=== PATIENT | male | born 1955 | race Caucasian/White ===

== ENCOUNTER 2017-01-27 05:00 | Inpatient (IN) | payer MEDICAID, MEDICARE ==
[~2017-01-27] VITALS: Ht 180.3 cm; Wt 110.3 kg
[~2017-01-27 05:00] MED LIST: METOPROLOL TARTRATE 25 MG TABLET PO ONE
[2017-01-27] MEDS ORDERED: CHLORHEXIDINE MOUTHWASH 15 ML UDC MM SCH (06:00)
[2017-01-27] MEDS: MUPIROCIN OINT 2%, 22GM TP SCH ×2 (09:00→22:05)
[2017-01-27] MEDS: SODIUM CHLORIDE FLUSH 10ML SYR IVF SCH ×3 (09:00→22:05)
[2017-01-27] MEDS ORDERED: FENTANYL PF 1000 MCG/20ML ONE (11:52)
[2017-01-27] MEDS ORDERED: KETAMINE 10 MG/ML, 20ML ONE (11:52)
[2017-01-27] MEDS ORDERED: MIDAZOLAM 10MG/2 ML ONE (11:52)
[2017-01-27] MEDS ORDERED: ROCURONIUM 10 MG/ML ONE (11:55)
[2017-01-27] MEDS ORDERED: PROPOFOL 10 MG/ML, 20ML ONE (11:55)
[2017-01-27] MEDS ORDERED: PROTAMINE SULFATE 10 MG/ML, 25ML ONE (15:41)
[2017-01-27] MEDS ORDERED: SODIUM BICARBONATE 1 MEQ/ML, 50ML VIAL ONE (15:41)
[2017-01-27] MEDS ORDERED: HEPARIN 1,000 UNITS/ML, 30ML ONE (15:41)
[2017-01-27] MEDS ORDERED: ALBUMIN HUMAN 25% 50 ML ONE (15:41)
[2017-01-27] MEDS ORDERED: AMINOCAPROIC ACID 250 MG/ML, 20ML ONE (15:41)
[2017-01-27] MEDS ORDERED: CALCIUM CHLORIDE 10%, 10ML SYR ONE (15:41)
[2017-01-27] MEDS ORDERED: LIDOCAINE 2% 100MG/5ML SYRINGE ONE (15:42)
[2017-01-27] MEDS ORDERED: HEPARIN 1,000 UNITS/ML, 10ML ONE (15:42)
[2017-01-27] MEDS ORDERED: PAPAVERINE 30 MG/ML, 2ML ONE (15:42)
[2017-01-27] MEDS ORDERED: DO NOT GIVE XX SCH (16:00)
[2017-01-27] MEDS ORDERED: DO NOT GIVE MC SCH (16:00)
[2017-01-27] MEDS ORDERED: ACETAMINOPHEN 325 MG TABLET PO PRN ×2 (16:00→17:00)
[2017-01-27] MEDS ORDERED: MORPHINE SULFATE 4 MG/ML, 1ML ONE (16:08)
[2017-01-27] MEDS: morphine SULFATE 10 MG/ML, 1ML IV PRN ×2 (16:15→19:22)
[2017-01-27] MEDS ORDERED: MIDAZOLAM 1 MG/ML, 2ML ONE (16:24)
[2017-01-27 16:32] LABS: ABG COLLECTION SITE ARTERIAL LINE
[2017-01-27] MEDS ORDERED: DEXTROSE 4 GM TAB.CHEW PO PRN (17:00)
[2017-01-27] MEDS ORDERED: PHENYLEPHRINE 10 MG in SODIUM CHLORIDE 0.9% 249 ML IV PRN (17:00)
[2017-01-27] MEDS ORDERED: MIDAZOLAM 1 MG/ML, 2ML IV PRN (17:00)
[2017-01-27] MEDS ORDERED: GLUCAGON 1 MG IVPush PRN (17:00)
[2017-01-27] MEDS ORDERED: SODIUM CHLORIDE 0.9% 1,000ML IVBOLUS PRN (17:00)
[2017-01-27] MEDS ORDERED: NITROGLYCERIN/D5W PMX 250 ML IV PRN (17:00)
[2017-01-27] MEDS ORDERED: SODIUM CHLORIDE 0.9% 1,000 ML IV SCH (17:00)
[2017-01-27] MEDS: KSCALE TO 4.5 IV SCH ×2 (17:00→23:00)
[2017-01-27] MEDS ORDERED: DOBUTAMINE 250 MG in SODIUM CHLORIDE 0.9% 230 ML IV PRN (17:00)
[2017-01-27] MEDS ORDERED: ONDANSETRON 2MG/ML, 2ML IVPush PRN (17:00)
[2017-01-27] MEDS ORDERED: BISACODYL 10 MG SUPP PR PRN (17:00)
[2017-01-27] MEDS ORDERED: REGULAR INSULIN 62.5 UNITS in SODIUM CHLORIDE 0.9% 249.375 ML IV PRN (17:00)
[2017-01-27] MEDS ORDERED: ACETAMINOPHEN 650 MG SUPP PR PRN (17:00)
[2017-01-27] MEDS ORDERED: MEPERIDINE/PF 25MG/0.5ML IV PRN (17:00)
[2017-01-27] MEDS ORDERED: OXYcodone/APAP 5/325MG TABLET PO PRN (17:00)
[2017-01-27] MEDS ORDERED: HYDROmorphone PCA 30 MG/30 ML IV PRN (17:00)
[2017-01-27] MEDS ORDERED: BISACODYL 5 MG EC TABLET PO PRN (17:00)
[2017-01-27] MEDS ORDERED: DEXMEDETOMIDINE 200 MCG in SODIUM CHLORIDE 0.9% 48 ML IV PRN (17:00)
[2017-01-27] MEDS ORDERED: PROCHLORPERAZINE 5 MG/ML, 2ML IV PRN (17:00)
[2017-01-27] MEDS ORDERED: PHARMACY INSTRUCTION (CSU AMIODARONE) MC SCH (17:00)
[2017-01-27] MEDS ORDERED: DEXTROSE 50%, 50ML SYRINGE IVPush PRN (17:00)
[2017-01-27] MEDS ORDERED: EPINEPHRINE 2 MG in SODIUM CHLORIDE 0.9% 248 ML IVPB PRN (17:00)
[2017-01-27] MEDS ORDERED: SODIUM CHLORIDE 0.9%, 500ML IVBOLUS PRN (17:00)
[2017-01-27] MEDS ORDERED: SODIUM BICARB 8.4%, 50ML SYRINGE IVPush PRN (17:00)
[2017-01-27] MEDS: PANTOPRAZOLE 40 MG IV IVPush SCH (17:44)
[2017-01-27] MEDS: OXYcodone IR 5MG TABLET PO PRN (20:29)
[2017-01-27] MEDS: INSULIN ASPART 100 UNITS/ML, PEN SQ-INSULIN SCH ×2 (22:05→22:33)
[2017-01-27] MEDS: MUPIROCIN OINT 2%, 22GM NAS SCH (22:05)
[2017-01-27] MEDS: DOCUSATE 100 MG CAPSULE PO SCH (22:07)
[2017-01-27] MEDS: CEFUROXIME 1.5 GM in SODIUM CHLORIDE 0.9% 50 ML IVPB SCH (22:25)
[2017-01-27] MEDS: VANCOMYCIN 1,400 MG in SODIUM CHLORIDE 0.9% 250 ML IV SCH (22:59)
[2017-01-27] MEDS: HYDROcodone/APAP 10/325 MG TABLET PO PRN (23:08)
[2017-01-27] MEDS: MAGNESIUM SULFATE 1 GM in SODIUM CHLORIDE 0.9% 50 ML IV SCH (23:08)
[2017-01-28] MEDS: HYDROcodone/APAP 10/325 MG TABLET PO PRN ×5 (02:40→21:32)
[2017-01-28] MEDS: INSULIN ASPART 100 UNITS/ML, PEN SQ-INSULIN SCH ×4 (02:41→21:28)
[2017-01-28 04:37] LABS: ABG COLLECTION SITE ARTERIAL LINE
[2017-01-28 04:46] LABS: BLOOD UREA NITROGEN 27 mg/dL (7-18)
[2017-01-28 04:49] LABS: ASPARTATE AMINO TRANSFERASE 32 U/L (15-37)
[2017-01-28] MEDS: KSCALE TO 4.5 IV SCH (05:00)
[2017-01-28] MEDS ORDERED: CEFUROXIME 1.5 GM in SODIUM CHLORIDE 0.9% 50 ML IVPB PRN (07:30)
[2017-01-28] MEDS ORDERED: CALCIUM CHLORIDE 13.6 MEQ in SODIUM CHLORIDE 0.9% 100 ML IV ONE (07:30)
[2017-01-28] MEDS ORDERED: VANCOMYCIN 1,000 MG in SODIUM CHLORIDE 0.9% 250 ML IV PRN (07:30)
[2017-01-28] MEDS: CEFUROXIME 1.5 GM in SODIUM CHLORIDE 0.9% 50 ML IVPB SCH (07:56)
[2017-01-28] MEDS: MUPIROCIN OINT 2%, 22GM NAS SCH ×2 (08:04→21:29)
[2017-01-28] MEDS: CHLORHEXIDINE PO SCH ×2 (08:04→21:29)
[2017-01-28] MEDS: METOPROLOL TARTRATE 25 MG TABLET PO/NG SCH ×2 (08:04→21:30)
[2017-01-28] MEDS: ASPIRIN 81 MG TABLET EC PO SCH (08:04)
[2017-01-28] MEDS: DOCUSATE 100 MG CAPSULE PO SCH ×2 (08:05→21:32)
[2017-01-28] MEDS: SODIUM CHLORIDE FLUSH 10ML SYR IVF SCH ×4 (08:05→21:29)
[2017-01-28] MEDS: VANCOMYCIN 1,400 MG in SODIUM CHLORIDE 0.9% 250 ML IV SCH (08:55)
[2017-01-28] MEDS: INSULIN ASPART 100 UNITS/ML, PEN SQ-INSULIN PRN ×2 (13:36→16:55)
[2017-01-28] MEDS: PANTOPRAZOLE 40 MG IV IVPush SCH (16:54)
[2017-01-28] MEDS: MAGNESIUM SULFATE 1 GM in SODIUM CHLORIDE 0.9% 50 ML IV SCH (16:54)
[2017-01-29] MEDS: HYDROcodone/APAP 10/325 MG TABLET PO PRN (04:38)
[2017-01-29 06:12] LABS: BLOOD UREA NITROGEN 23 mg/dL (7-18)
[2017-01-29] MEDS: INSULIN ASPART 100 UNITS/ML, PEN SQ-INSULIN SCH ×3 (06:25→16:43)
[2017-01-29] MEDS: DOCUSATE 100 MG CAPSULE PO SCH ×2 (07:37→21:46)
[2017-01-29] MEDS: MUPIROCIN OINT 2%, 22GM NAS SCH ×2 (07:37→21:45)
[2017-01-29] MEDS: ASPIRIN 81 MG TABLET EC PO SCH (07:37)
[2017-01-29] MEDS: CHLORHEXIDINE PO SCH ×2 (07:38→21:45)
[2017-01-29] MEDS: METOPROLOL TARTRATE 25 MG TABLET PO/NG SCH ×2 (07:38→21:46)
[2017-01-29] MEDS: SODIUM CHLORIDE FLUSH 10ML SYR IVF SCH ×4 (07:42→21:45)
[2017-01-29 09:59] LABS: ASPARTATE AMINO TRANSFERASE 20 U/L (15-37); BLOOD UREA NITROGEN 26 mg/dL (7-18)
[2017-01-29 10:00] LABS: ASPARTATE AMINO TRANSFERASE 16 U/L (15-37); BLOOD UREA NITROGEN 27 mg/dL (7-18)
[2017-01-29] MEDS: AMPICILLIN 500 MG in SODIUM CHLORIDE 0.9% 50 ML IV SCH ×3 (10:04→21:44)
[2017-01-29] MEDS: PANTOPRAZOLE 40 MG IV IVPush SCH (17:14)
[2017-01-29] MEDS: MAGNESIUM SULFATE 1 GM in SODIUM CHLORIDE 0.9% 50 ML IV SCH (17:14)
[2017-01-29 18:33] VITALS: BP 115/72
[2017-01-29] MEDS: ENOXAPARIN 40 MG/0.4 ML SQ SCH (21:46)
[2017-01-30 00:48] VITALS: BP 106/67
[2017-01-30] MEDS: AMPICILLIN 500 MG in SODIUM CHLORIDE 0.9% 50 ML IV SCH ×4 (03:46→21:21)
[2017-01-30 04:25] LABS: BLOOD UREA NITROGEN 21 mg/dL (7-18)
[2017-01-30] MEDS: AMIODARONE 900 MG in DEXTROSE 5% 482 ML IV PRN ×2 (05:28→14:41)
[2017-01-30] MEDS ORDERED: AMIODARONE 150 MG in DEXTROSE 5% 100 ML IV ONE (05:30)
[2017-01-30] MEDS ORDERED: FILTER 0.22 MICRON IV PRN (05:30)
[2017-01-30 07:13] VITALS: BP 101/66
[2017-01-30] MEDS ORDERED: POTASSIUM CHLORIDE 20 MEQ TAB.ER.PRT ONE (07:53)
[2017-01-30] MEDS ORDERED: FUROSEMIDE 20 MG/2 ML ONE (07:54)
[2017-01-30] MEDS: POTASSIUM CHLORIDE 10 MEQ TABLET.ER PO SCH (08:00)
[2017-01-30] MEDS: SODIUM CHLORIDE FLUSH 10ML SYR IVF SCH ×4 (08:23→21:21)
[2017-01-30] MEDS: DOCUSATE 100 MG CAPSULE PO SCH ×2 (08:24→21:00)
[2017-01-30] MEDS: MUPIROCIN OINT 2%, 22GM NAS SCH ×2 (08:24→21:20)
[2017-01-30] MEDS: CLOPIDOGREL 75 MG TABLET PO SCH (08:24)
[2017-01-30] MEDS: METOPROLOL TARTRATE 25 MG TABLET PO/NG SCH ×2 (08:24→21:20)
[2017-01-30] MEDS: ASPIRIN 81 MG TABLET EC PO SCH (08:24)
[2017-01-30] MEDS ORDERED: FUROSEMIDE 20 MG/2 ML IV SCH (09:00)
[2017-01-30 13:28] VITALS: BP 106/72
[2017-01-30] MEDS: PANTOPRAZOLE 40 MG IV IVPush SCH (15:49)
[2017-01-30] MEDS ORDERED: SODIUM BICARBONATE 4.2%, 5ML ONE (16:04)
[2017-01-30] MEDS ORDERED: LIDOCAINE 1%, 20ML ONE (16:04)
[2017-01-30 19:51] VITALS: BP 120/63
[2017-01-30] MEDS: ENOXAPARIN 40 MG/0.4 ML SQ SCH (21:19)
[2017-01-30] MEDS: HYDROcodone/APAP 10/325 MG TABLET PO PRN (23:53)
[2017-01-31] VITALS (9 sets, daily range): BP systolic 75–119; BP diastolic 55–83
[2017-01-31] MEDS: AMPICILLIN 500 MG in SODIUM CHLORIDE 0.9% 50 ML IV SCH ×4 (03:59→20:54)
[2017-01-31 04:43] LABS: BLOOD UREA NITROGEN 23 mg/dL (7-18)
[2017-01-31] MEDS: HYDROcodone/APAP 10/325 MG TABLET PO PRN (06:13)
[2017-01-31] MEDS ORDERED: CARVEDILOL 12.5 MG TABLET PO SCH ×2 (08:00→13:00)
[2017-01-31] MEDS: POTASSIUM CHLORIDE 10 MEQ TABLET.ER PO SCH (08:00)
[2017-01-31] MEDS ORDERED: AMIODARONE 900 MG in DEXTROSE 5% 482 ML IV PRN (08:00)
[2017-01-31] MEDS: INSULIN ASPART 100 UNITS/ML, PEN SQ-INSULIN PRN ×4 (08:30→20:54)
[2017-01-31] MEDS: POTASSIUM CHLORIDE 20 MEQ TAB.ER.PRT PO SCH ×2 (08:58→20:33)
[2017-01-31] MEDS: FUROSEMIDE 20 MG/2 ML IV SCH ×2 (08:58→15:37)
[2017-01-31] MEDS: SODIUM CHLORIDE FLUSH 10ML SYR IVF SCH ×3 (08:59→20:34)
[2017-01-31] MEDS: ASPIRIN 81 MG TABLET EC PO SCH (08:59)
[2017-01-31] MEDS: METOPROLOL TARTRATE 25 MG TABLET PO/NG SCH (08:59)
[2017-01-31] MEDS: MUPIROCIN OINT 2%, 22GM NAS SCH ×2 (08:59→20:34)
[2017-01-31] MEDS: CLOPIDOGREL 75 MG TABLET PO SCH (08:59)
[2017-01-31] MEDS ORDERED: AMIODARONE 200 MG TABLET PO SCH (09:00)
[2017-01-31] MEDS ORDERED: DOCUSATE 100 MG CAPSULE PO SCH (09:00)
[2017-01-31] MEDS: LISINOPRIL 5 MG TABLET PO SCH (10:35)
[2017-01-31] MEDS: CARVEDILOL 12.5 MG TABLET PO SCH ×2 (12:34→20:33)
[2017-01-31] MEDS ORDERED: SODIUM CHLORIDE 0.9%, 500ML IVBOLUS ONE (15:30)
[2017-01-31] MEDS: PANTOPRAZOLE 40 MG IV IVPush SCH (17:01)
[2017-01-31] MEDS: ATORVASTATIN 80 MG TABLET PO SCH (20:33)
[2017-01-31] MEDS: ENOXAPARIN 40 MG/0.4 ML SQ SCH (20:33)
[2017-01-31] MEDS: AMIODARONE 200 MG TABLET PO SCH (20:34)
[2017-02-01] VITALS (7 sets, daily range): BP systolic 86–111; BP diastolic 48–71
[2017-02-01] MEDS: AMPICILLIN 500 MG in SODIUM CHLORIDE 0.9% 50 ML IV SCH ×4 (04:33→22:14)
[2017-02-01] MEDS ORDERED: AMIODARONE 900 MG in DEXTROSE 5% 482 ML IV PRN (05:00)
[2017-02-01 05:09] LABS: BLOOD UREA NITROGEN 30 mg/dL (7-18)
[2017-02-01] MEDS: INSULIN ASPART 100 UNITS/ML, PEN SQ-INSULIN PRN ×2 (07:00→13:14)
[2017-02-01] MEDS: CLOPIDOGREL 75 MG TABLET PO SCH (08:53)
[2017-02-01] MEDS: MUPIROCIN OINT 2%, 22GM NAS SCH (08:54)
[2017-02-01] MEDS: DOCUSATE 100 MG CAPSULE PO SCH (08:54)
[2017-02-01] MEDS: SODIUM CHLORIDE FLUSH 10ML SYR IVF SCH ×2 (08:54→20:32)
[2017-02-01] MEDS: ASPIRIN 81 MG TABLET EC PO SCH (08:54)
[2017-02-01] MEDS: AMIODARONE 200 MG TABLET PO SCH ×2 (08:54→20:32)
[2017-02-01] MEDS: LISINOPRIL 5 MG TABLET PO SCH (09:06)
[2017-02-01] MEDS: FUROSEMIDE 20 MG/2 ML IV SCH (09:20)
[2017-02-01] MEDS: POTASSIUM CHLORIDE 10 MEQ TABLET.ER PO SCH (09:30)
[2017-02-01] MEDS: CARVEDILOL 12.5 MG TABLET PO SCH (09:30)
[2017-02-01] MEDS ORDERED: SODIUM CHLORIDE 0.9% 500 ML IV SCH (11:00)
[2017-02-01] MEDS ORDERED: DIGOXIN 0.25 MG/ML, 2ML IVPush ONE (11:00)
[2017-02-01] MEDS ORDERED: DIGOXIN 0.25 MG/ML, 2ML ONE (11:02)
[2017-02-01] MEDS: OXYcodone IR 5MG TABLET PO PRN (14:53)
[2017-02-01] MEDS ORDERED: PANTOPROZOLE 40MG TABLET PO SCH (17:00)
[2017-02-01] MEDS: DIGOXIN 0.25 MG TABLET PO SCH (18:02)
[2017-02-01] MEDS: CARVEDILOL 3.125 MG TABLET PO SCH (18:02)
[2017-02-01] MEDS ORDERED: DEXTROSE 50%, 50ML SYRINGE IVPush PRN (20:00)
[2017-02-01] MEDS ORDERED: DEXTROSE 4 GM TAB.CHEW PO PRN (20:00)
[2017-02-01] MEDS ORDERED: ACETAMINOPHEN 650 MG SUPP PR PRN (20:00)
[2017-02-01] MEDS ORDERED: GLUCAGON 1 MG IVPush PRN (20:00)
[2017-02-01] MEDS ORDERED: BISACODYL 10 MG SUPP PR PRN (20:00)
[2017-02-01] MEDS: ENOXAPARIN 40 MG/0.4 ML SQ SCH (20:31)
[2017-02-01] MEDS: ATORVASTATIN 80 MG TABLET PO SCH (20:32)
[2017-02-02] MEDS: DIGOXIN 0.25 MG TABLET PO SCH (00:11)
[2017-02-02 00:40] VITALS: BP 100/66
[2017-02-02] MEDS: AMPICILLIN 500 MG in SODIUM CHLORIDE 0.9% 50 ML IV SCH ×3 (03:34→16:25)
[2017-02-02] MEDS: CARVEDILOL 3.125 MG TABLET PO SCH (05:13)
[2017-02-02 05:31] LABS: BLOOD UREA NITROGEN 31 mg/dL (7-18)
[2017-02-02 06:49] VITALS: BP 106/71
[2017-02-02] MEDS: DOCUSATE 100 MG CAPSULE PO SCH (09:00)
[2017-02-02] MEDS ORDERED: APIXABAN 5 MG TABLET PO SCH (09:00)
[2017-02-02] MEDS ORDERED: DIGOXIN 0.125 MG TABLET PO SCH (09:00)
[2017-02-02] MEDS: POTASSIUM CHLORIDE 10 MEQ TABLET.ER PO SCH (09:16)
[2017-02-02] MEDS: ASPIRIN 81 MG TABLET EC PO SCH (09:16)
[2017-02-02] MEDS: AMIODARONE 200 MG TABLET PO SCH (09:16)
[2017-02-02] MEDS: FUROSEMIDE 20 MG/2 ML IV SCH (09:16)
[2017-02-02] MEDS: SODIUM CHLORIDE FLUSH 10ML SYR IVF SCH (09:16)
[2017-02-02] MEDS ORDERED: ATOR80TA75 PO (11:57)
[2017-02-02] MEDS ORDERED: AMPI250C3 PO (11:57)
[2017-02-02] MEDS ORDERED: ASPI-621 PO (11:57)
[2017-02-02] MEDS ORDERED: APIX5TAB PO (11:57)
[2017-02-02] MEDS ORDERED: AMIO200T42 PO (11:57)
[2017-02-02] MEDS ORDERED: DIGO125T PO (11:57)
[2017-02-02] MEDS ORDERED: DOCU-30 PO (11:57)
[2017-02-02] MEDS ORDERED: POTA10TA5 PO (11:57)
[2017-02-02] MEDS ORDERED: FURO-93 PO (11:57)
[2017-02-02] MEDS ORDERED: CARV3.1212 PO (11:57)
[2017-02-02 12:30] VITALS: BP 113/78
[2017-02-02] MEDS ORDERED: HYDR-3138 PO (17:25)
== END 2017-02-02 18:30 | disposition home or self-care (01) | DRG 236 ==
LOC: CSU 05:00 → 5SO 01-29 15:22
PROVIDERS: ADMIT Thoracic Surgery (Cardiothoracic Vascular Surgery); ATTEND Thoracic Surgery (Cardiothoracic Vascular Surgery)
PROC: 021109W Bypass Coronary Artery, Two Arteries from Aorta with Autologous Venous Tissue, Open Approach (ICD-10-PCS; 2017-01-27)
PROC: 06BP4ZZ Excision of Right Saphenous Vein, Percutaneous Endoscopic Approach (ICD-10-PCS; 2017-01-27)
PROC: 5A02210 Assistance with Cardiac Output using Balloon Pump, Continuous (ICD-10-PCS; 2017-01-27)
PROC: B24BZZ4 Ultrasonography of Heart with Aorta, Transesophageal (ICD-10-PCS; 2017-01-27)
PROC: 5A1221Z Performance of Cardiac Output, Continuous (ICD-10-PCS; 2017-01-27)
PROC: 5A1223Z Performance of Cardiac Pacing, Continuous (ICD-10-PCS; 2017-01-27)
PROC: 02100Z9 Bypass Coronary Artery, One Artery from Left Internal Mammary, Open Approach (ICD-10-PCS; principal; 2017-01-27 14:00)
DX: I25.119 Atherosclerotic heart disease of native coronary artery with unspecified angina pectoris (principal); I50.20 Unspecified systolic (congestive) heart failure; I13.0 Hypertensive heart and chronic kidney disease with heart failure and stage 1 through stage 4 chronic kidney disease, or unspecified chronic kidney disease; N39.0 Urinary tract infection, site not specified; I97.89 Other postprocedural complications and disorders of the circulatory system, not elsewhere classified; I11.0 Hypertensive heart disease with heart failure; E78.5 Hyperlipidemia, unspecified; E78.00 Pure hypercholesterolemia, unspecified; R06.02 Shortness of breath; I50.9 Heart failure, unspecified; N18.9 Chronic kidney disease, unspecified; E11.22 Type 2 diabetes mellitus with diabetic chronic kidney disease; B96.4 Proteus (mirabilis) (morganii) as the cause of diseases classified elsewhere; I25.5 Ischemic cardiomyopathy; Z79.899 Other long term (current) drug therapy; I48.91 Unspecified atrial fibrillation; Z79.82 Long term (current) use of aspirin
CPT/HCPCS: 32555; 36415; 36600; 71010; 80048; 80053; 81001; 82330; 82800; 82803; 82810; 82947; 82962; 83036; 83735; 84100; 84132; 84295; 85014; 85018; 85025; 85049; 85347; 85610; 85730; 86850; 86900; 86920; 86923; 87077; 87081; 87086; 87186; 93005; 93312; 93321; 93325; 93970; 94002; 94150; C1725; C1760; J0697; J1644; J1650; J1815; J2175; J2250; J2405; J2704; J2720; J3010; J3370; J3475; J3490; P9047; C9113; J0282; J0290; J0780; J1160; J1940; J2270; J2440; J7040; J7050; J7060